=== PATIENT | male | born 1980 | race Two or more races ===

== ENCOUNTER 2023-06-23 09:05 | Emergency (ER) | payer OTHER ==
[2023-06-23 09:10] VITALS: BMI 34.2
[2023-06-23] MEDS ORDERED: ACETAMINOPHEN INJECTION 100 ML IVPB ONE (09:59)
[2023-06-23] MEDS: ACETAMINOPHEN 1000 MG/100 ML BAG IVPB ONE (10:04)
[2023-06-23 10:08] LABS: BASO % 0.2 % (0-2.0); HEMATOCRIT 46.9 % (35.4-49); LYMPH % 34.1 % (8-40); MCH 28.9 pg (25.7-33.7); MCHC 34.2 g/dl (32.0-35.9); MEAN CELL VOLUME 84.5 fl (80-96); MEAN PLT VOLUME 8.5 fl (7.5-11.1); MONO % 9.4 % (3.8-10.2); NEUT % 55.3 % (42.8-82.8); PLATELET COUNT 210 10^3/uL (134-434); RBC 5.55 M/mm3 (4.00-5.60); RDW 13.2 % (11.9-15.9); WHITE BLOOD COUNT 6.6 K/mm3 (4.0-10.0)
[2023-06-23 10:44] LABS: POTASSIUM 4.5 mmol/L (3.5-5.1)
[2023-06-23 10:46] LABS: ALBUMIN 3.8 g/dl (3.4-5.0); BLOOD UREA NITROGEN 17.8 mg/dL (7-18)
[2023-06-23 10:49] LABS: CREATININE 1.2 mg/dL (0.55-1.3)
[2023-06-23 10:52] LABS: BILIRUBIN,TOTAL 0.9 mg/dL (0.2-1); TOT PROT 7.7 g/dl (6.4-8.2)
[2023-06-23] MEDS ORDERED: morphine SULFATE 4 MG/ML VIAL ONE (11:10)
[2023-06-23 13:47] VITALS: BP 123/89; PULSE 73; RESP 18; TEMP 97.9
== END 2023-06-23 13:47 | disposition home or self-care (01) ==
LOC: JER 09:05
PROC: 3E030NZ Introduction of Analgesics, Hypnotics, Sedatives into Peripheral Vein, Open Approach (ICD-10-PCS; principal; 2023-06-23)
DX: R07.89 Other chest pain (principal); R51.9 Headache, unspecified; R06.02 Shortness of breath; Z20.822 Contact with and (suspected) exposure to COVID-19
CPT/HCPCS: 0241U-QW; 36415; 71045-TC-FY; 80053; 84484; 85025; 93005; 93010; 99285-25; J0131

== ENCOUNTER 2023-07-28 10:08 | Emergency (ER) | payer OTHER ==
[2023-07-28 10:12] VITALS: RESP 18; TEMP 98.2; BMI 34.9
[2023-07-28 11:21] LABS: BASO % 0.4 % (0-2.0); EOS % 3.2 % (0-4.5); HEMATOCRIT 44.5 % (35.4-49); LYMPH % 38.3 % (8-40); MCH 28.8 pg (25.7-33.7); MCHC 33.8 g/dl (32.0-35.9); MEAN PLT VOLUME 8.1 fl (7.5-11.1); MONO % 9.6 % (3.8-10.2); NEUT % 48.5 % (42.8-82.8); PLATELET COUNT 196 10^3/uL (134-434); RBC 5.23 M/mm3 (4.00-5.60); RDW 13.4 % (11.9-15.9)
[2023-07-28] MEDS ORDERED: ACETAMINOPHEN INJECTION 100 ML IVPB ONE (11:23)
[2023-07-28] MEDS ORDERED: LIDOCAINE 4% PATCH TP ONE (11:24)
[2023-07-28 11:27] LABS: INR 1.12 (0.83-1.09); PROTHROMBIN TIME (PATIENT) 12.8 SEC (9.7-13.0)
[2023-07-28 11:30] LABS: ACTIVATED PTT 29.9 SECONDS (25.2-36.5)
[2023-07-28 11:37] VITALS: BP 139/103; PULSE 79
[2023-07-28 11:43] LABS: POTASSIUM 3.9 mmol/L (3.5-5.1)
[2023-07-28 11:45] LABS: CALCIUM 8.5 mg/dL (8.5-10.1)
[2023-07-28 11:46] LABS: ALBUMIN 3.8 g/dl (3.4-5.0); BLOOD UREA NITROGEN 14.6 mg/dL (7-18)
[2023-07-28 11:49] LABS: CREATININE 1.1 mg/dL (0.55-1.3)
[2023-07-28 11:50] LABS: BILIRUBIN,TOTAL 0.5 mg/dL (0.2-1); TOT PROT 7.4 g/dl (6.4-8.2)
[2023-07-28] MEDS: ACETAMINOPHEN 1000 MG/100 ML BAG IVPB ONE (11:55)
[2023-07-28] MEDS: LIDOCAINE 4% PATCH TP ONE (12:01)
[2023-07-28] MEDS ORDERED: METOCLOPRAMIDE HCL INJECTION 10 MG/2 ML VIAL ONE (12:02)
[2023-07-28] MEDS: METOCLOPRAMIDE HCL INJECTION 10 MG/2 ML VIAL IVPB ONE (12:11)
[2023-07-28] MEDS: LACTATED RINGERS SOLUTION 1000 ML INFUS.BAG IV ONE (12:19)
[2023-07-28] MEDS: METOCLOPRAMIDE HCL INJECTION 10 MG/2 ML VIAL IVPUSH ONE (12:19)
[2023-07-28 13:05] LABS: N-TERMINAL BNP 16.3 pg/ml (5-125)
[2023-07-28] MEDS ORDERED: LIDOCAINE PATCH REMOVAL MC SCH (22:00)
== END 2023-07-28 13:30 | disposition home or self-care (01) ==
LOC: JER 10:08
PROC: 3E033NZ Introduction of Analgesics, Hypnotics, Sedatives into Peripheral Vein, Percutaneous Approach (ICD-10-PCS; principal; 2023-07-28)
PROC: 3E033GC Introduction of Other Therapeutic Substance into Peripheral Vein, Percutaneous Approach (ICD-10-PCS; 2023-07-28)
DX: R07.2 Precordial pain (principal); Z20.822 Contact with and (suspected) exposure to COVID-19
CPT/HCPCS: 0241U-QW; 36415; 71046-TC-FY; 80053; 83880; 84484; 85025; 85610; 85730; 93005; 93010; 99285-25; J0131